=== PATIENT | female | born 1955 | race Caucasian/White ===

== ENCOUNTER → 2019-07-10 | Outpatient (CLI) | payer MEDICAID, MEDICARE | END | disposition home or self-care (01) | LOC: Rad HDHVI 08:06 | PROVIDERS: ATTEND Internal Medicine | DX: J44.9 Chronic obstructive pulmonary disease, unspecified (principal); I11.9 Hypertensive heart disease without heart failure | CPT/HCPCS: 93306 ==

== ENCOUNTER → 2019-07-17 | Outpatient (CLI) | payer MEDICAID ==
[~2019-07-17] VITALS: Ht 160 cm; Wt 90.7 kg
[~2019-07-17] MED LIST: ADENOSINE 76 MG in GIVE UN-DILUTED 0 ML IV ONE; ADENOSINE 90 MG/30 ML INJ IV ONE; cloNIDine HCL 0.1 MG TAB ONE
== END | disposition home or self-care (01) ==
LOC: Rad HDHVI 13:01
PROVIDERS: ATTEND Internal Medicine Cardiovascular Disease
DX: E78.5 Hyperlipidemia, unspecified (principal); I10 Essential (primary) hypertension; G62.9 Polyneuropathy, unspecified; G47.33 Obstructive sleep apnea (adult) (pediatric); J44.9 Chronic obstructive pulmonary disease, unspecified; E03.9 Hypothyroidism, unspecified; R63.8 Other symptoms and signs concerning food and fluid intake; Z86.73 Personal history of transient ischemic attack (TIA), and cerebral infarction without residual deficits
CPT/HCPCS: 78452; 93005; 96374; 96375; A9500; J0153

== ENCOUNTER → 2019-08-23 | Outpatient (CLI) | payer MEDICAID | END | disposition home or self-care (01) | LOC: Rad HDHVI 08:51 | PROVIDERS: ATTEND Internal Medicine | DX: I70.203 Unspecified atherosclerosis of native arteries of extremities, bilateral legs (principal) | CPT/HCPCS: 93925; 93926 ==

== ENCOUNTER → 2019-09-05 | Outpatient (CLI) | payer MEDICAID ==
[2019-09-05 13:00] VITALS: BP 207/103
--- NOTE | 2019-09-05 13:00 | NUR ---
[facility] PT ARRIVED AT [facility] FROM [facility] BACK OFFICE WITH BP 207/103. CLONIDINE PO ORDERED
[2019-09-05] MEDS: cloNIDine HCL 0.1 MG TAB PO ONE (13:05)
--- NOTE | 2019-09-05 13:45 | NUR ---
Discharge Instructions See e-MAR for any mediations given with this visit. Patient education given on disease process. Patient verbalized understanding. Previous labs reviewed. Patient discharged in stable condition with after care instructions and follow up appointment. CLONIDINE PO
[2019-09-05 17:03] VITALS: BP 164/90
== END | disposition home or self-care (01) ==
LOC: CHF HDHVI 13:47
PROVIDERS: ATTEND Internal Medicine Cardiovascular Disease
DX: I10 Essential (primary) hypertension (principal)
CPT/HCPCS: G0463

== ENCOUNTER → 2021-07-08 | Outpatient (CLI) | payer MEDICARE, MEDICAID ==
[~2021-07-08] VITALS: Ht 160 cm; Wt 77.1 kg
[~2021-07-08] MED LIST changes: +ADENOSINE 65 MG in GIVE UN-DILUTED 0 ML IV ONE; -ADENOSINE 76 MG in GIVE UN-DILUTED 0 ML IV ONE; -cloNIDine HCL 0.1 MG TAB ONE
== END | disposition home or self-care (01) ==
LOC: Rad HDHVI 09:31
PROVIDERS: ATTEND Internal Medicine
DX: I10 Essential (primary) hypertension (principal); E78.5 Hyperlipidemia, unspecified; E11.9 Type 2 diabetes mellitus without complications; R07.9 Chest pain, unspecified; I73.9 Peripheral vascular disease, unspecified; F17.210 Nicotine dependence, cigarettes, uncomplicated; Z82.49 Family history of ischemic heart disease and other diseases of the circulatory system
CPT/HCPCS: 78452; 93005; 96374; 96375; A9500; J0153

== ENCOUNTER → 2021-09-03 | Outpatient (CLI) | payer MEDICARE, MEDICAID | END | disposition home or self-care (01) | LOC: Rad HDHVI 13:15 | PROVIDERS: ATTEND Internal Medicine Cardiovascular Disease | DX: I73.9 Peripheral vascular disease, unspecified (principal) | CPT/HCPCS: 93925 ==

== ENCOUNTER → 2021-12-22 | Outpatient (CLI) | payer MEDICARE, MEDICAID | END | disposition home or self-care (01) | LOC: Rad HDHVI 10:03 | PROVIDERS: ATTEND Internal Medicine | DX: I65.23 Occlusion and stenosis of bilateral carotid arteries (principal); E78.5 Hyperlipidemia, unspecified; I73.9 Peripheral vascular disease, unspecified | CPT/HCPCS: 93880 ==

== ENCOUNTER → 2022-03-11 | Outpatient (CLI) | payer MEDICARE, MEDICAID ==
[~2022-03-11] MED LIST changes: -ADENOSINE 65 MG in GIVE UN-DILUTED 0 ML IV ONE; -ADENOSINE 90 MG/30 ML INJ IV ONE; +ALL100T PO; +ASPI1TAB20 PO; +ATO40T PO; +CILO100T PO; +CIPR500T4 PO; +CLON0.3D4 PO; +DIPH2.5T73 PO; +EMPA1TAB PO; +ERTU5TAB PO; +FLUO-125 PO; +FLUT110A INH; +GABA100C9 PO; +LOSA-39 PO; +MESA0.37 PO; +METF-370 PO; +MIRA25TA PO; +MONT-8 PO; +NIC21P TOP; +NIFE1TAB30 PO; +TRAZ100T3 PO; +UMEC1INH IN
[2022-03-11 09:45] VITALS: BP 142/85
[2022-03-11 10:15] VITALS: BP 143/77
[2022-03-11 11:39] LABS: Basophils # (auto) 0.1 10 ^3/uL (0-0.2); Basophils % (auto) 0.4 % (0.0-2.0); Eosinophils # (auto) 0.4 10 ^3/uL (0-0.8); Eosinophils % (auto) 2.8 % (0.0-7.0); Hematocrit 42.1 % (36.0-46.0); Hemoglobin 14.3 g/dL (12.2-16.2); Lymphocytes # (auto) 2.3 10 ^3/uL (0.4-5.4); Lymphocytes % (auto) 15.5 % (10.0-50.0); Mean Corpuscular Hgb Conc. 33.9 g/dL (32.0-36.0); Mean Corpuscular Volume 82.5 fL (80.0-100.0); Monocytes % (auto) 7.1 % (0.0-12.0); Neutrophils % (auto) 74.2 % (37.0-80.0); Red Blood Cells 5.11 10^6/uL (4.0-5.20); Red Cell Distribution Width 15.1 % (11.8-14.3); White Blood Cell 14.8 10^3/uL (4.4-10.8)
[2022-03-11 11:41] LABS: BUN/Creatinine Ratio 16.4; Calcium 10.3 mg/dL (8.5-10.1); Potassium 3.9 mmol/L (3.5-5.1)
[2022-03-11 11:57] LABS: Partial Thromboplastin Time 29.4 sec (23.6-33.0)
== END | disposition home or self-care (01) ==
LOC: Rad HDHVI 09:49
PROVIDERS: ATTEND Internal Medicine
DX: Z01.818 Encounter for other preprocedural examination (principal); I73.9 Peripheral vascular disease, unspecified; I10 Essential (primary) hypertension; R07.9 Chest pain, unspecified
CPT/HCPCS: 36415; 71046; 80048; 85025; 85610; 85730

== ENCOUNTER 2022-03-13 07:09 | Day surgery (SDC) | payer MEDICARE, MEDICAID ==
[~2022-03-13] VITALS: Ht 160 cm; Wt 81.6 kg
[~2022-03-13 07:09] MED LIST changes: -TRAZ100T3 PO
[2022-03-13 10:15] LABS: Alcohol, Urine < 3.0 mg/dL (0-10); Amphetamine Screen, Urine POSITIVE (NEGATIVE); Barbiturate Scree,Urine NEGATIVE (NEGATIVE); Benzodiazephine Screen, Urine NEGATIVE (NEGATIVE); Cannabinoid Screen, Urine NEGATIVE (NEGATIVE); Cocaine Screen, Urine NEGATIVE (NEGATIVE); Opiate Scree,Urine NEGATIVE (NEGATIVE); Phencyclidine Screen, Urine NEGATIVE (NEGATIVE)
[2022-03-13] MEDS ORDERED: LIDOCAINE 2%HCL (LOCAL ANESTH.) INJ 10ml MDV ONE (11:54)
[2022-03-13] MEDS ORDERED: IODIXANOL 320MG/ML 100ML BTL IV ONE (11:54)
[2022-03-13] MEDS ORDERED: ATROPINE SULF 1 MG/10ml SYR ONE (12:02)
[2022-03-13] MEDS ORDERED: ANGIOMAX 250 MG VIAL IV ONE (12:03)
[2022-03-13] MEDS ORDERED: GLYCOPYRROLATE 0.2 MG/ML 1ML VIAL ONE (12:03)
[2022-03-13] MEDS ORDERED: EPINEPHrine HCL 1 MG/10 ML SYRG ONE (12:03)
[2022-03-13] MEDS ORDERED: SODIUM CHL 0.9% 0 ML ONE (12:04)
== END 2022-03-13 15:06 | disposition home or self-care (01) ==
LOC: CATH 07:09
PROVIDERS: ATTEND Internal Medicine
DX: G45.8 Other transient cerebral ischemic attacks and related syndromes (principal); I10 Essential (primary) hypertension; E78.5 Hyperlipidemia, unspecified; J44.9 Chronic obstructive pulmonary disease, unspecified; F17.200 Nicotine dependence, unspecified, uncomplicated; E11.9 Type 2 diabetes mellitus without complications; Z82.49 Family history of ischemic heart disease and other diseases of the circulatory system; Z20.822 Contact with and (suspected) exposure to COVID-19
CPT/HCPCS: 36224; 80307; C1760; C1894; J1644; J2001; J7030; Q9967; U0003; 99152

== ENCOUNTER → 2022-11-24 | Outpatient (CLI) | payer MEDICARE, MEDICAID | END | disposition home or self-care (01) | LOC: Rad HDHVI 14:54 | PROVIDERS: ATTEND Internal Medicine | DX: I11.9 Hypertensive heart disease without heart failure (principal) | CPT/HCPCS: 93306 ==

== ENCOUNTER → 2022-11-27 | Outpatient (CLI) | payer MEDICARE, MEDICAID ==
[~2022-11-27] MED LIST changes: +IODIXANOL 320MG/ML 100ML BTL IV ONE
[2022-11-27 11:05] VITALS: BP 154/77
[2022-11-27 11:32] VITALS: BP 151/82
== END | disposition home or self-care (01) ==
LOC: Rad HDHVI 11:00
PROVIDERS: ATTEND Internal Medicine
DX: Z01.810 Encounter for preprocedural cardiovascular examination (principal); I70.0 Atherosclerosis of aorta; I70.203 Unspecified atherosclerosis of native arteries of extremities, bilateral legs
CPT/HCPCS: 75635; G0463; Q9967

== ENCOUNTER → 2023-01-11 | Outpatient (CLI) | payer MEDICARE, MEDICAID ==
[~2023-01-11] VITALS: Ht 160 cm; Wt 86.2 kg
[~2023-01-11] MED LIST changes: +ADENOSINE 72 MG in GIVE UN-DILUTED 0 ML IV ONE; +ADENOSINE 90 MG/30 ML INJ IV ONE; -IODIXANOL 320MG/ML 100ML BTL IV ONE
== END | disposition home or self-care (01) ==
LOC: Rad HDHVI 13:57
PROVIDERS: ATTEND Internal Medicine
DX: I10 Essential (primary) hypertension (principal); E11.9 Type 2 diabetes mellitus without complications; E78.5 Hyperlipidemia, unspecified; I73.9 Peripheral vascular disease, unspecified; J44.9 Chronic obstructive pulmonary disease, unspecified; I87.9 Disorder of vein, unspecified; F17.210 Nicotine dependence, cigarettes, uncomplicated; Z82.49 Family history of ischemic heart disease and other diseases of the circulatory system
CPT/HCPCS: 78452; 93005; 96374; 96375; A9500; J0153

== ENCOUNTER → 2023-02-10 | Outpatient (CLI) | payer MEDICARE, MEDICAID ==
[~2023-02-10] MED LIST changes: -ADENOSINE 72 MG in GIVE UN-DILUTED 0 ML IV ONE; -ADENOSINE 90 MG/30 ML INJ IV ONE
== END | disposition home or self-care (01) ==
LOC: Rad HDHVI 10:07
PROVIDERS: ATTEND Internal Medicine Cardiovascular Disease
DX: R91.8 Other nonspecific abnormal finding of lung field (principal); R06.02 Shortness of breath
CPT/HCPCS: 71250

== ENCOUNTER → 2023-07-07 | Outpatient (CLI) | payer MEDICARE, MEDICAID ==
[~2023-07-07] MED LIST changes: +GABA-1308 PO; -GABA100C9 PO; -LOSA-39 PO; +LOSA100T58 PO
== END | disposition home or self-care (01) ==
LOC: Rad HDHVI 14:12
PROVIDERS: ATTEND Internal Medicine Cardiovascular Disease
DX: I65.23 Occlusion and stenosis of bilateral carotid arteries (principal); I10 Essential (primary) hypertension; I73.9 Peripheral vascular disease, unspecified
CPT/HCPCS: 93880

== ENCOUNTER → 2023-12-15 | Outpatient (CLI) | payer MEDICARE, MEDICAID | END | disposition home or self-care (01) | LOC: XYW 09:02 | PROVIDERS: ATTEND Internal Medicine Cardiovascular Disease | DX: I65.21 Occlusion and stenosis of right carotid artery (principal); I73.9 Peripheral vascular disease, unspecified; I70.90 Unspecified atherosclerosis | CPT/HCPCS: 93886 ==

== ENCOUNTER 2024-01-13 07:41 | Day surgery (SDC) | payer MEDICARE, MEDICAID ==
[2024-01-12 14:28] LABS: Basophils # (auto) 0.1 10 ^3/uL (0-0.2); Basophils % (auto) 1.1 % (0.0-2.0); Eosinophils # (auto) 0.7 10 ^3/uL (0-0.8); Eosinophils % (auto) 5.8 % (0.0-7.0); Hematocrit 46.3 % (36.0-46.0); Hemoglobin 15.4 g/dL (12.2-16.2); Lymphocytes # (auto) 1.8 10 ^3/uL (0.4-5.4); Lymphocytes % (auto) 15.9 % (10.0-50.0); Mean Corpuscular Hemoglobin 27.4 pg (28.0-32.0); Mean Corpuscular Hgb Conc. 33.3 g/dL (32.0-36.0); Mean Corpuscular Volume 82.5 fL (80.0-100.0); Monocytes # (auto) 0.6 10 ^3/uL (0-1.3); Monocytes % (auto) 5.7 % (0.0-12.0); Neutrophils # (auto) 8.2 10 ^3/uL (1.6-8.6); Neutrophils % (auto) 71.5 % (37.0-80.0); Nucleated Red Blood Cells % 0.1 %; Red Blood Cells 5.61 10^6/uL (4.0-5.20); Red Cell Distribution Width 15.3 % (11.8-14.3); White Blood Cell 11.4 10^3/uL (4.4-10.8)
[2024-01-12 14:36] LABS: INR 0.95 (0.9-1.15); Partial Thromboplastin Time 27.9 SEC (24.5-34.5)
[2024-01-12 15:30] LABS: Anion Gap 8 (5-15); Carbon Dioxide 28 mmol/L (20-30); Chloride 103 mmol/L (98-107); Potassium 4.1 mmol/L (3.5-5.1); Sodium 139 mmol/L (136-145)
[2024-01-12 15:32] LABS: Calcium 10.3 mg/dL (8.5-10.1)
[2024-01-12 15:36] LABS: BUN/Creatinine Ratio 18.8 (10.0-20.0); Blood Urea Nitrogen 19 mg/dL (9-23); Glucose 85 mg/dL (74-106)
[~2024-01-13] VITALS: Ht 160 cm; Wt 83.9 kg
[~2024-01-13 07:41] MED LIST changes: -ASPI1TAB20 PO; -ATO40T PO; +ATOR-507 PO; +CHOL50007 PO; -CILO100T PO; -CIPR500T4 PO; -CLON0.3D4 PO; +DULO60CA41 PO; -FLUO-125 PO; -FLUT110A INH; +FLUT1AER3 IN; +GABA-1250 PO; -GABA-1308 PO; +GLUC-149 VI; +LORA-622 PO; -LOSA100T58 PO; +MELO15TA29 PO; -MESA0.37 PO; +MULT-688 PO; +NAP500T PO; -NIC21P TOP; -NIFE1TAB30 PO; +NIFE90TA75 PO; +OFL50TS OT; +OXYB5TAB14 PO; +PANT40T PO; +RIVA10TA PO; +SACU1TAB PO; +SULF500T57 PO; +TRAM50TA2 PO; +TRAZ150T84 PO; -UMEC1INH IN
[2024-01-13] MEDS ORDERED: IODIXANOL 320MG/ML 100ML BTL IV ONE (12:20)
[2024-01-13] MEDS ORDERED: LIDOCAINE 2%HCL (LOCAL ANESTH.) INJ 20ML MDV ONE ×2 (12:20→12:41)
[2024-01-13] MEDS ORDERED: IOHEXOL 350 MG/ML 100ML IJ ONE (12:20)
[2024-01-13] MEDS ORDERED: HEPARIN IN NS 1000Units/500mL 1,500 ML ONE (12:20)
[2024-01-13] MEDS ORDERED: PHENYLEPHRINE HCL 10 MG/ML VL ONE (12:23)
[2024-01-13] MEDS ORDERED: GLYCOPYRROLATE 0.2 MG/ML 1ML VIAL ONE (12:24)
[2024-01-13] MEDS ORDERED: ANGIOMAX 250 MG VIAL IV ONE (12:33)
[2024-01-13] MEDS ORDERED: SODIUM CHL 0.9% 0 ML ONE (12:33)
[2024-01-13] MEDS ORDERED: MIDAZOLAM HCL 2MG/2ML 2ml VIAL (1mg/ml) ONE (13:18)
[2024-01-13] MEDS: traMADol HCL 50 MG TAB PO ONE (15:21)
== END 2024-01-13 16:00 | disposition home or self-care (01) ==
LOC: CATH 07:41
PROVIDERS: ATTEND Internal Medicine Cardiovascular Disease
DX: I65.21 Occlusion and stenosis of right carotid artery (principal); R07.9 Chest pain, unspecified; I10 Essential (primary) hypertension; R06.02 Shortness of breath; E78.5 Hyperlipidemia, unspecified; I48.91 Unspecified atrial fibrillation; I25.2 Old myocardial infarction; E11.40 Type 2 diabetes mellitus with diabetic neuropathy, unspecified; E11.21 Type 2 diabetes mellitus with diabetic nephropathy; K21.9 Gastro-esophageal reflux disease without esophagitis; M10.9 Gout, unspecified; F17.210 Nicotine dependence, cigarettes, uncomplicated; Z79.84 Long term (current) use of oral hypoglycemic drugs; Z79.899 Other long term (current) drug therapy; Z86.718 Personal history of other venous thrombosis and embolism; Z86.73 Personal history of transient ischemic attack (TIA), and cerebral infarction without residual deficits; Z98.890 Other specified postprocedural states; Z82.49 Family history of ischemic heart disease and other diseases of the circulatory system
CPT/HCPCS: 36222; 36225; C1760; C1894; J1644; J2250; J7030; Q9967; 33264; 36415; 80048; 85025; 85610; 85730; 99152

== ENCOUNTER 2024-07-14 17:58 | Inpatient (IN) | payer MEDICARE, MEDICAID ==
[2024-07-14] VITALS (8 sets, daily range): BP systolic 129–159; BP diastolic 76–97; PULSE 94–122; RESP 15–23; TEMP 97.3–98.1; O2SAT 93–100
[~2024-07-14] VITALS: Ht 160 cm; Wt 95.3 kg
[2024-07-14] MEDS ORDERED: VERAPAMIL 2.5MG/ML INJ 2ML VIAL IV ONE (18:15)
[2024-07-14] MEDS ORDERED: ATROPINE SULF 1 MG/10ml SYR ONE (18:15)
[2024-07-14] MEDS ORDERED: ANGIOMAX 250 MG VIAL IV ONE (18:15)
[2024-07-14] MEDS ORDERED: SODIUM CHL 0.9% 50 ML ONE (18:16)
[2024-07-14] MEDS ORDERED: fentaNYL CITRATE 100 MCG/2 ML VL ONE (18:16)
[2024-07-14] MEDS ORDERED: LIDOCAINE 2%HCL (LOCAL ANESTH.) INJ 20ML MDV ONE (18:16)
[2024-07-14] MEDS ORDERED: MIDAZOLAM HCL 2MG/2ML 2ml VIAL (1mg/ml) ONE (18:16)
[2024-07-14] MEDS ORDERED: EPINEPHrine HCL 1 MG/10 ML SYRG ONE (18:16)
[2024-07-14] MEDS ORDERED: HEPARIN SODIUM (PORCINE) 5000 UNITS/ML 1ML VIAL ONE (18:20)
[2024-07-14] MEDS ORDERED: IODIXANOL 320MG/ML 100ML BTL IV ONE ×2 (18:28→19:38)
[2024-07-14 18:32] LABS: Eosinophils # (auto) 0.7 10 ^3/uL (0-0.8); Neutrophils # (auto) 9.3 10 ^3/uL (1.6-8.6)
[2024-07-14 18:33] LABS: Basophils # (auto) 0 10 ^3/uL (0-0.2); Basophils % (auto) 0.3 % (0.0-2.0); Eosinophils % (auto) 5.5 % (0.0-7.0); Hematocrit 45.4 % (36.0-46.0); Lymphocytes # (auto) 2.7 10 ^3/uL (0.4-5.4); Lymphocytes % (auto) 19.5 % (10.0-50.0); Mean Corpuscular Hemoglobin 26.8 pg (28.0-32.0); Mean Corpuscular Volume 81.5 fL (80.0-100.0); Monocytes # (auto) 0.9 10 ^3/uL (0-1.3); Monocytes % (auto) 6.3 % (0.0-12.0); Neutrophils % (auto) 68.4 % (37.0-80.0); Nucleated Red Blood Cells % 0.2 %; Platelet Count (auto) 418 10^3/uL (140-450); Red Blood Cells 5.57 10^6/uL (4.0-5.20); Red Cell Distribution Width 15.9 % (11.8-14.3); White Blood Cell 13.7 10^3/uL (4.4-10.8)
[2024-07-14] MEDS: HEPARIN SODIUM (PORCINE) 5000 UNITS/ML 1ML VIAL IV ONE (18:33)
[2024-07-14 18:35] LABS: Chloride 105 mmol/L (98-107); Potassium 4.1 mmol/L (3.5-5.1); Sodium 139 mmol/L (136-145)
[2024-07-14 18:36] LABS: Anion Gap 8 (5-15); Carbon Dioxide 26 mmol/L (20-31)
[2024-07-14] MEDS: HEPARIN DRIP/D5W 100UNITS/ML 250 ML IV SCH (18:39)
[2024-07-14 18:41] LABS: BUN/Creatinine Ratio 22.2 (10.0-20.0); Blood Urea Nitrogen 24 mg/dL (9-23); Glucose 140 mg/dL (74-106)
[2024-07-14 18:46] LABS: Partial Thromboplastin Time 28.2 SEC (24.5-34.5); Prothrombin Time 10.6 sec (9.3-11.8)
[2024-07-14] MEDS ORDERED: FUROSEMIDE 20 MG/2 ML VIAL ONE (19:38)
[2024-07-14] MEDS ORDERED: CLOPIDOGREL BISULFATE 75 MG TAB ONE (19:43)
[2024-07-14] MEDS ORDERED: NITROGLYCERIN 0.4 MG SL TAB SL PRN ×2 (19:45→20:00)
[2024-07-14] MEDS ORDERED: MORPHINE SULFATE 4 MG/ML SYR/VIAL IV PRN (20:00)
[2024-07-14] MEDS: ONDANSETRON HCL 4 MG/2 ML VIAL IV PRN (21:32)
[2024-07-14] MEDS: traZODone HCL 50 MG TAB PO SCH (21:33)
[2024-07-14] MEDS: GABAPENTIN 300 MG CAP PO SCH (21:33)
[2024-07-14] MEDS ORDERED: sulfaSALAzine 500 MG TAB PO SCH (22:00)
[2024-07-14] MEDS: SACUBITRIL-VALSARTAN 24mg/26mg TAB PO SCH (23:06)
[2024-07-14] MEDS: sulfaSALAzine 500 MG TAB PO SCH (23:07)
[2024-07-15] VITALS (21 sets, daily range): BP systolic 110–159; BP diastolic 47–76; PULSE 77–125; RESP 14–20; TEMP 97.7–98.3; O2SAT 90–100
[2024-07-15] MEDS: dilTIAZem 25 MG/5 ML VIAL IV ONE (00:11)
[2024-07-15] MEDS: ACETAMINOPHEN 325 MG TAB PO PRN (03:30)
[2024-07-15] MEDS: ALBUTEROL SULF 2.5 MG/0.5ML(0.5%) NEB SOLN NEB PRN (03:36)
[2024-07-15 06:47] LABS: Basophils # (auto) 0.1 10 ^3/uL (0-0.2); Basophils % (auto) 0.5 % (0.0-2.0); Eosinophils # (auto) 0.2 10 ^3/uL (0-0.8); Eosinophils % (auto) 1.7 % (0.0-7.0); Hematocrit 41.3 % (36.0-46.0); Hemoglobin 13.8 g/dL (12.2-16.2); Lymphocytes # (auto) 1.9 10 ^3/uL (0.4-5.4); Mean Corpuscular Hemoglobin 27.6 pg (28.0-32.0); Mean Corpuscular Hgb Conc. 33.4 g/dL (32.0-36.0); Mean Corpuscular Volume 82.6 fL (80.0-100.0); Monocytes # (auto) 0.9 10 ^3/uL (0-1.3); Monocytes % (auto) 6.2 % (0.0-12.0); Neutrophils # (auto) 11.7 10 ^3/uL (1.6-8.6); Neutrophils % (auto) 78.6 % (37.0-80.0); Platelet Count (auto) 338 10^3/uL (140-450); Red Blood Cells 5.01 10^6/uL (4.0-5.20); Red Cell Distribution Width 15.8 % (11.8-14.3); White Blood Cell 14.9 10^3/uL (4.4-10.8)
[2024-07-15 07:05] LABS: Alanine Aminotransferase 52 U/L (7-40); Alkaline Phosphatase 90 U/L (46-116); Anion Gap 9 (5-15); Aspartate Aminotransferase 286 U/L (13-40); Blood Urea Nitrogen 23 mg/dL (9-23); Calcium 9.2 mg/dL (8.7-10.4); Carbon Dioxide 26 mmol/L (20-31); Chloride 104 mmol/L (98-107); Glucose 144 mg/dL (74-106); LDL Cholesterol 102 mg/dL (< 100); Potassium 3.6 mmol/L (3.5-5.1); Sodium 139 mmol/L (136-145); Triglycerides 210 mg/dL (< 150)
[2024-07-15 07:06] LABS: Albumin 3.9 g/dL (3.2-4.8); Bilirubin, Total 0.5 mg/dL (0.2-1.0); Cholesterol 170 mg/dL (< 200); HDL Cholesterol 42 mg/dL (40-59); Total Protein 6.9 g/dL (5.7-8.2)
[2024-07-15] MEDS: DULoxetine HCL 30 MG CAP PO SCH (09:39)
[2024-07-15] MEDS: OXYBUTYNIN CHL 5 MG TAB PO SCH (09:40)
[2024-07-15] MEDS: ATORVASTATIN 20 MG TAB PO SCH (09:40)
[2024-07-15] MEDS: EMPAGLIFLOZIN 10 MG TAB PO SCH (09:41)
[2024-07-15] MEDS: MONTELUKAST SODIUM 10 MG TAB PO SCH (09:41)
[2024-07-15] MEDS: DOCUSATE SOD 100 MG CAP PO SCH (09:41)
[2024-07-15] MEDS: PANTOPRAZOLE 40 MG TAB PO SCH (09:42)
[2024-07-15] MEDS: [UNRECOGNIZED DRUG - OTHER] PO SCH (09:45)
[2024-07-15] MEDS: MIRABEGRON PO SCH (09:45)
[2024-07-15] MEDS: CLOPIDOGREL BISULFATE 75 MG TAB PO SCH (09:51)
[2024-07-15] MEDS: METOPROLOL TARTRATE 25 MG TAB PO SCH (10:00)
[2024-07-15] MEDS: NIFEdipine ER 30 MG TAB PO SCH (10:00)
[2024-07-15] MEDS: MAGNESIUM SULFATE 1GM/100ML 100 ML IV ONE (13:44)
[2024-07-15] MEDS: POTASSIUM EFFERVESENT TAB 25 MEQ PO ONE (13:44)
[2024-07-15] MEDS: SODIUM CHLORIDE 0.9% 1,000 ML IV SCH (13:45)
[2024-07-15 16:40] LABS: Urine Bacteria None Seen /hpf (None Seen)
[2024-07-15 16:55] LABS: Urine Blood Negative /uL (Negative); Urine Clarity Clear (Clear); Urine Color Light-Yellow (Yellow); Urine Protein, UAD TRACE (Negative); Urine Specific Gravity 1.027 (1.001-1.035); Urine Urobilinogen Normal (Negative); Urine WBC <1 /hpf (0 - 5); Urine pH 6.5 (5.0-9.0)
[2024-07-15] MEDS: NICOTINE 21MG/24 HR TOPICAL PATCH TD ONE (17:32)
[2024-07-15 17:49] LABS: Potassium 4.6 mmol/L (3.5-5.1)
[2024-07-16] VITALS (17 sets, daily range): BP systolic 108–130; BP diastolic 58–80; PULSE 69–95; RESP 16–20; TEMP 97.5–98.5; O2SAT 87–100
[2024-07-16 05:40] LABS: Basophils # (auto) 0 10 ^3/uL (0-0.2); Basophils % (auto) 0.2 % (0.0-2.0); Eosinophils # (auto) 0.3 10 ^3/uL (0-0.8); Eosinophils % (auto) 1.9 % (0.0-7.0); Hematocrit 39.2 % (36.0-46.0); Hemoglobin 13.1 g/dL (12.2-16.2); Lymphocytes # (auto) 1.3 10 ^3/uL (0.4-5.4); Lymphocytes % (auto) 8.8 % (10.0-50.0); Mean Corpuscular Hemoglobin 27.5 pg (28.0-32.0); Mean Corpuscular Hgb Conc. 33.4 g/dL (32.0-36.0); Mean Corpuscular Volume 82.2 fL (80.0-100.0); Monocytes % (auto) 6.6 % (0.0-12.0); Neutrophils # (auto) 12.1 10 ^3/uL (1.6-8.6); Neutrophils % (auto) 82.5 % (37.0-80.0); Platelet Count (auto) 326 10^3/uL (140-450); Red Blood Cells 4.77 10^6/uL (4.0-5.20); White Blood Cell 14.7 10^3/uL (4.4-10.8)
[2024-07-16 05:47] LABS: Alanine Aminotransferase 38 U/L (7-40); Alkaline Phosphatase 86 U/L (46-116); Aspartate Aminotransferase 103 U/L (13-40); Calcium 9.5 mg/dL (8.7-10.4); Carbon Dioxide 29 mmol/L (20-31); Chloride 104 mmol/L (98-107)
[2024-07-16 05:48] LABS: Albumin 3.7 g/dL (3.2-4.8); Anion Gap 5 (5-15); BUN/Creatinine Ratio 18.5 (10.0-20.0); Bilirubin, Total 0.5 mg/dL (0.2-1.0); Blood Urea Nitrogen 20 mg/dL (9-23); Glucose 118 mg/dL (74-106); Potassium 4.2 mmol/L (3.5-5.1); Sodium 138 mmol/L (136-145); Total Protein 6.6 g/dL (5.7-8.2)
[2024-07-16] MEDS: NICOTINE 21MG/24 HR TOPICAL PATCH TD SCH (09:34)
[2024-07-16] MEDS: ASPirin 81 mg TAB PO SCH (09:35)
[2024-07-16] MEDS: DOXYCYCLINE 100 MG TAB/CAP PO ONE (11:31)
[2024-07-16] MEDS: methylPREDNISolone SOD SUCC 40 MG/ML VL IV ONE (11:31)
[2024-07-16 12:47] LABS: Amphetamine Screen, Urine Neg (NEGATIVE); Benzodiazephine Screen, Urine Neg (NEGATIVE)
[2024-07-16 12:48] LABS: Barbiturate Scree,Urine Neg (NEGATIVE); Cannabinoid Screen, Urine Neg (NEGATIVE); Cocaine Screen, Urine Neg (NEGATIVE); Opiate Scree,Urine Neg (NEGATIVE); Phencyclidine Screen, Urine Neg (NEGATIVE)
[2024-07-16] MEDS ORDERED: ALBUTEROL SULF 2.5 MG/0.5ML(0.5%) NEB SOLN NEB PRN (14:15)
[2024-07-16] MEDS: ALBUTEROL SULF 2.5 MG/0.5ML(0.5%) NEB SOLN NEB SCH (18:05)
[2024-07-16] MEDS: IPRATROPIUM BROM 0.5 MG/2.5ML INH SOL NEB SCH (18:05)
[2024-07-16] MEDS: DOXYCYCLINE 100 MG TAB/CAP PO SCH (21:21)
[2024-07-16] MEDS: methylPREDNISolone SOD SUCC 40 MG/ML VL IV SCH (21:23)
[2024-07-17] VITALS (17 sets, daily range): BP systolic 102–121; BP diastolic 40–66; PULSE 63–91; RESP 14–19; TEMP 97.6–98.8; O2SAT 63–99
[2024-07-17 08:24] LABS: Hematocrit 39.6 % (36.0-46.0); Mean Corpuscular Hemoglobin 27.2 pg (28.0-32.0); Mean Corpuscular Hgb Conc. 32.8 g/dL (32.0-36.0); Mean Corpuscular Volume 82.8 fL (80.0-100.0); Platelet Count (auto) 357 10^3/uL (140-450); Red Blood Cells 4.79 10^6/uL (4.0-5.20); Red Cell Distribution Width 15.8 % (11.8-14.3); White Blood Cell 20.3 10^3/uL (4.4-10.8)
[2024-07-17 08:32] LABS: Alanine Aminotransferase 30 U/L (7-40); Albumin 4.2 g/dL (3.2-4.8); Alkaline Phosphatase 88 U/L (46-116); Anion Gap 7 (5-15); BUN/Creatinine Ratio 22.4 (10.0-20.0); Calcium 10.2 mg/dL (8.7-10.4); Carbon Dioxide 26 mmol/L (20-31); Chloride 103 mmol/L (98-107); Glucose 151 mg/dL (74-106); Potassium 4.6 mmol/L (3.5-5.1); Sodium 136 mmol/L (136-145)
[2024-07-17 08:33] LABS: Aspartate Aminotransferase 43 U/L (13-40); Bilirubin, Total 0.3 mg/dL (0.2-1.0); Total Protein 7.2 g/dL (5.7-8.2)
[2024-07-17 08:34] LABS: Blood Urea Nitrogen 30 mg/dL (9-23)
[2024-07-17] MEDS: ATORVASTATIN 20 MG TAB PO SCH (08:58)
[2024-07-17 09:00] LABS: Band Neutrophils % (manual) 0; Basophils % (manual) 0 (0.0-2.0); Blast Cells 0; Eosinophils % (manual) 0 (0-7); Metamyelocytes % 0; Myelocytes % 0; Promyelocytes % 0; Reactive Lymphocytes 0
[2024-07-17] MEDS: NIFEdipine ER 30 MG TAB PO SCH (09:04)
[2024-07-17] MEDS: ENOXAPARIN SOD 40 MG/0.4 ML SYRINGE SC SCH (09:05)
[2024-07-17 11:35] LABS: Lymphocytes % (manual) 2 (10.0-50.0); Monocytes % (manual) 2 (0-12); Platelet Estimate Adequate
[2024-07-18] VITALS (18 sets, daily range): BP systolic 107–137; BP diastolic 48–75; PULSE 60–99; RESP 13–20; TEMP 97.9–98.9; O2SAT 92–100
[2024-07-18 06:03] LABS: Basophils # (auto) 0 10 ^3/uL (0-0.2); Basophils % (auto) 0.2 % (0.0-2.0); Eosinophils # (auto) 0.1 10 ^3/uL (0-0.8); Eosinophils % (auto) 0.4 % (0.0-7.0); Lymphocytes # (auto) 2.1 10 ^3/uL (0.4-5.4); Lymphocytes % (auto) 13.7 % (10.0-50.0); Mean Corpuscular Hemoglobin 27.2 pg (28.0-32.0); Mean Corpuscular Hgb Conc. 32.5 g/dL (32.0-36.0); Mean Corpuscular Volume 83.5 fL (80.0-100.0); Monocytes # (auto) 0.9 10 ^3/uL (0-1.3); Monocytes % (auto) 5.9 % (0.0-12.0); Neutrophils # (auto) 12.4 10 ^3/uL (1.6-8.6); Neutrophils % (auto) 79.8 % (37.0-80.0); Platelet Count (auto) 307 10^3/uL (140-450); Red Blood Cells 4.43 10^6/uL (4.0-5.20); Red Cell Distribution Width 15.9 % (11.8-14.3); White Blood Cell 15.6 10^3/uL (4.4-10.8)
[2024-07-18 06:20] LABS: Anion Gap 8 (5-15); Carbon Dioxide 23 mmol/L (20-31); Chloride 105 mmol/L (98-107); Potassium 3.8 mmol/L (3.5-5.1); Sodium 136 mmol/L (136-145)
[2024-07-18 06:22] LABS: Calcium 9.6 mg/dL (8.7-10.4)
[2024-07-18 06:26] LABS: BUN/Creatinine Ratio 23.8 (10.0-20.0); Blood Urea Nitrogen 38 mg/dL (9-23); Glucose 118 mg/dL (74-106)
[2024-07-18] MEDS ORDERED: guaiFENesin 200 MG/10 ML UD PO PRN (13:45)
[2024-07-18 14:38] LABS: Urine Bacteria None Seen /hpf (None Seen)
[2024-07-18 14:56] LABS: Urine Blood Negative /uL (Negative); Urine Clarity Clear (Clear); Urine Color Light-Yellow (Yellow); Urine Protein, UAD Negative (Negative); Urine Specific Gravity 1.019 (1.001-1.035); Urine Urobilinogen Normal (Negative); Urine WBC 1 /hpf (0 - 5); Urine pH 5.5 (5.0-9.0)
[2024-07-19] VITALS (9 sets, daily range): BP systolic 117–148; BP diastolic 54–84; PULSE 65–82; RESP 14–18; TEMP 98.1–98.6; O2SAT 93–100
[2024-07-19 06:54] LABS: Chloride 106 mmol/L (98-107); Potassium 4.1 mmol/L (3.5-5.1); Sodium 134 mmol/L (136-145)
[2024-07-19 06:55] LABS: Anion Gap 5 (5-15); Calcium 9.5 mg/dL (8.7-10.4); Carbon Dioxide 23 mmol/L (20-31)
[2024-07-19 07:00] LABS: BUN/Creatinine Ratio 31.1 (10.0-20.0); Blood Urea Nitrogen 41 mg/dL (9-23); Glucose 104 mg/dL (74-106)
[2024-07-19] MEDS ORDERED: CLOP75TA28 PO (09:55)
[2024-07-19] MEDS ORDERED: ASPI1TAB20 PO (09:55)
[2024-07-19] MEDS ORDERED: ATOR80TA PO (10:00)
[2024-07-19] MEDS ORDERED: NICO14DI9 TD (14:54)
== END 2024-07-19 17:38 | disposition home or self-care (01) | DRG 321 ==
LOC: ER 17:58 → EDBD 17:58 → TELE 19:40 → TELE-CENTR 20:48
PROVIDERS: ADMIT Student in an Organized Health Care Education/Training Program; ATTEND Internal Medicine
PROC: 027237Z Dilation of Coronary Artery, Three Arteries with Four or More Drug-eluting Intraluminal Devices, Percutaneous Approach (ICD-10-PCS; principal; 2024-07-14)
PROC: B211YZZ Fluoroscopy of Multiple Coronary Arteries using Other Contrast (ICD-10-PCS; 2024-07-14)
PROC: 4A023N7 Measurement of Cardiac Sampling and Pressure, Left Heart, Percutaneous Approach (ICD-10-PCS; 2024-07-14)
PROC: 3E03317 Introduction of Other Thrombolytic into Peripheral Vein, Percutaneous Approach (ICD-10-PCS; 2024-07-14)
DX: I21.29 ST elevation (STEMI) myocardial infarction involving other sites (principal); I50.43 Acute on chronic combined systolic (congestive) and diastolic (congestive) heart failure; N17.0 Acute kidney failure with tubular necrosis; R65.11 Systemic inflammatory response syndrome (SIRS) of non-infectious origin with acute organ dysfunction; I47.20 Ventricular tachycardia, unspecified; J96.10 Chronic respiratory failure, unspecified whether with hypoxia or hypercapnia; I13.0 Hypertensive heart and chronic kidney disease with heart failure and stage 1 through stage 4 chronic kidney disease, or unspecified chronic kidney disease; E11.51 Type 2 diabetes mellitus with diabetic peripheral angiopathy without gangrene; E78.5 Hyperlipidemia, unspecified; I25.10 Atherosclerotic heart disease of native coronary artery without angina pectoris; K21.9 Gastro-esophageal reflux disease without esophagitis; F17.210 Nicotine dependence, cigarettes, uncomplicated; N18.9 Chronic kidney disease, unspecified; E11.22 Type 2 diabetes mellitus with diabetic chronic kidney disease; J43.9 Emphysema, unspecified; I49.3 Ventricular premature depolarization; N32.81 Overactive bladder; M1A.9XX0 Chronic gout, unspecified, without tophus (tophi); I25.2 Old myocardial infarction; Z86.73 Personal history of transient ischemic attack (TIA), and cerebral infarction without residual deficits; Z79.899 Other long term (current) drug therapy; Z79.02 Long term (current) use of antithrombotics/antiplatelets; Z79.82 Long term (current) use of aspirin; Z79.84 Long term (current) use of oral hypoglycemic drugs
CPT/HCPCS: 36415; 71045; 71046; 80048; 80053; 80061; 80307; 81001; 83735; 83880; 84132; 84484; 85007; 85025; 85027; 85610; 85730; 86850; 86900; 86901; 92929; 92941; 93005; 93306; 93458; 93971; 94640; 97110; 97116; 97163; 97530; 99152; 99291; C1874; G0378; J2250; J2405; Q9967